=== PATIENT | male | born 1975 | race Hispanic/Latino ===

== ENCOUNTER 2017-02-25 14:33 | Emergency (ER) | payer OTHER ==
[2017-02-25 14:36] VITALS: BP 112/70; PULSE 87; RESP 18; TEMP 98.2; O2SAT 99
--- NOTE | 2017-02-25 14:41 | ED PDOC ---
HPI: CCC, URI, Sore Throat Time Seen by Provider: 02/25/17 14:35 Chief Complaint (Nursing): Cough, Cold, Congestion Chief Complaint (Provider): cough History Per: Patient History/Exam Limitations: no limitations Onset/Duration Of Symptoms: Gradual Current Symptoms Are (Timing): Still Present Sick Contacts (Context): None Associated Symptoms: Chills, Cough. denies: Vomiting, Diarrhea Severity: Moderate Additional Complaint(s): 41yo prior well male with cough ongoing now for 2-3 weeks and worsening, mild SOB associated with chills/malaise. Denies chest pain, syncope, hemoptysis, leg edema or orthopnea. Completed 5 days of high dose PO augmentin without improvement. Past Medical History Reviewed: Historical Data, Nursing Documentation, Vital Signs Vital Signs: Last Vital Signs Temp 98.2 F 02/25/17 14:34 Pulse 87 02/25/17 14:34 Resp 18 02/25/17 14:34 BP 112/70 02/25/17 14:34 Pulse Ox 99 02/25/17 15:48 - Medical History PMH: Asthma (mild intermittent) - Family History Family History: States: Unknown Family Hx - Social History Current smoker - smoking cessation education provided: No - Home Medications Home Medications: Ambulatory Orders Medication Instructions Recorded Albuterol HFA [Ventolin HFA 90 1 - 2 puff IH Q4 PRN #1 inhaler 02/25/17 mcg/actuation (8 g)] Prednisone 50 mg PO DAILY #4 tab 02/25/17 - Allergies Allergies/Adverse Reactions: Allergies Allergy/AdvReac Type Severity Reaction Status Date / Time No Known Allergies Allergy Verified 02/25/17 14:34 Review of Systems Constitutional: Positive for: Chills. Negative for: Fever Eyes: Negative for: Vision Change Cardiovascular: Negative for: Chest Pain Respiratory: Positive for: Cough. Negative for: Shortness of Breath Gastrointestinal: Negative for: Nausea, Vomiting Genitourinary Male: Negative for: Dysuria, Frequency Musculoskeletal: Negative for: Neck Pain, Shoulder Pain Skin: Negative for: Rash, Lesions, Jaundice Neurological: Negative for: Weakness, Numbness, Headache Physical Exam - Reviewed Nursing Documentation Reviewed: Yes Vital Signs Reviewed: Yes - Physical Exam Appears: Positive for: Well, Non-toxic, No Acute Distress Head Exam: Positive for: ATRAUMATIC, NORMAL INSPECTION, NORMOCEPHALIC Skin: Positive for: Normal Color, Warm, DRY Eye Exam: Positive for: EOMI, Normal appearance, PERRL ENT: Positive for: Normal ENT Inspection Neck: Positive for: Normal, Painless ROM Cardiovascular/Chest: Positive for: Regular Rate, Rhythm Respiratory: Positive for: Wheezing (L side). Negative for: Accessory Muscle Use, Rales, Respiratory Distress Gastrointestinal/Abdominal: Positive for: Normal Exam, Bowel Sounds, Soft Back: Positive for: Normal Inspection Extremity: Positive for: Normal ROM Neurologic/Psych: Positive for: Alert, Oriented - ECG O2 Sat by Pulse Oximetry: 99 Medical Decision Making Medical Decision Making: Check CXR r/o pneumonia given cough x2 weeks despite oral Abx. --------- CXR negative for acute infiltrate, d/w Dr Silvana Lopez. Rx albuterol HFA, pulse dose prednisone. Followup PMD ([facility])/ [email or web address]. No signs respiratory failure, dehydration, systemic infection or altered mental status to indicate further testing or treatment in the ED. Disposition - Clinical Impression Clinical Impression: Cough, Wheeze - Patient ED Disposition Is Patient to be Admitted: No Counseled Patient/Family Regarding: Studies Performed, Diagnosis, Need For Followup, Rx Given - Disposition Referrals: [facility] [place] [Outside] Disposition: Routine/Home Disposition Time: 15:00 Condition: STABLE Additional Instructions: Followup with primary doctor as needed. Recommend good air quality, avoid allergic exposures, smoke. Return to ER for any worse or new symptoms. May followup via [facility] in 2-3 days for re-evaluation and further testing if needed. Prescriptions: Albuterol HFA [Ventolin HFA 90 mcg/actuation (8 g)] 1 - 2 puff IH Q4 PRN #1 inhaler PRN Reason: Shortness Of Breath Prednisone 50 mg PO DAILY #4 tab Instructions: Asthma (ED), Acute Cough (ED) Forms: [employer] ([place])
--- NOTE | 2017-02-25 14:54 | RAD ---
HISTORY: Cough 5 days duration currently on Augmentin COMPARISON: None. TECHNIQUE: Chest PA and lateral FINDINGS: LUNGS: No active pulmonary disease. PLEURA: No significant pleural effusion identified. No pneumothorax apparent. CARDIOVASCULAR: Normal. OSSEOUS STRUCTURES: No significant abnormalities. VISUALIZED UPPER ABDOMEN: Normal. OTHER FINDINGS: None. IMPRESSION: No active disease.
== END 2017-02-25 15:05 | disposition home or self-care (01) ==
LOC: H.ER 14:33
DX: J45.909 Unspecified asthma, uncomplicated (principal)